=== PATIENT | male | born 1985 ===

== ENCOUNTER 2018-01-12 09:40 | Emergency (ER) | payer OTHER ==
[~2018-01-12] VITALS: Ht 185.4 cm; Wt 85.7 kg
[2018-01-12] MEDS ORDERED: ZITHROMAX TRI-500 MG PO (14:57)
[2018-01-12] MEDS ORDERED: TUSSI PRES-B L120 M1 PO (14:57)
== END 2018-01-12 15:00 | disposition home or self-care (01) ==
LOC: ER 09:40
DX: B34.9 Viral infection, unspecified (principal)